=== PATIENT | male | born 1960 | race Two or more races ===

== ENCOUNTER 2016-11-13 02:52 | Emergency (ER) | payer OTHER ==
[~2016-11-13] VITALS: Ht 195.6 cm; Wt 106.6 kg
--- NOTE | 2016-11-13 02:55 | NUR ---
PATIENT WALKED INTO ER C/O LOWER BACK PAIN. PATIENT STATES HAD A SLIP AND FALL 1 WEEK AGO AND INJURIED BACK. PT IS ALERT, ORIENTED X 4, NO RESP DISTRESS NOTED OR REPORTED UPON ASSESSMENT... MD AT BEDSIDE...
[2016-11-13] MEDS ORDERED: ONDANSETRON 4 MG/2 ML VIAL ONE (03:29)
[2016-11-13] MEDS ORDERED: HYDROMORPHONE 1 MG/1 ML DISP.SYRIN ONE (03:29)
[2016-11-13] MEDS ORDERED: ONDANSETRON 4 MG/2 ML VIAL IM ONE (03:30)
[2016-11-13] MEDS ORDERED: HYDROMORPHONE 1 MG/1 ML DISP.SYRIN IM ONE (03:30)
--- NOTE | 2016-11-13 04:26 | NUR ---
CONTACTED RADIOLOGY, ADVISED SCAN HAS NOT YET BEEN READ...TECH TO F/U WITH IMAGING COMPANY...
--- NOTE | 2016-11-13 05:19 | NUR ---
Patient discharged to home in stable conditon. Written and verbal after care instructions given. Patient verbalizes understanding of instructions. Pt walked out of ER unassisted with belongings at side...
[2016-11-13 05:21] VITALS: BP 136/91
== END 2016-11-13 05:23 | disposition home or self-care (01) ==
LOC: ER 02:59
DX: M54.42 Lumbago with sciatica, left side (principal); M54.41 Lumbago with sciatica, right side
CPT/HCPCS: 72100; A4663; J1170; J2405